=== PATIENT | female | born 1975 | race Caucasian/White ===

== ENCOUNTER → 2017-11-07 | Outpatient (CLI) | payer OTHER | LOC: BMCIMAGING 09:02 | PROVIDERS: ATTEND Family Medicine | DX: S52.201A Unspecified fracture of shaft of right ulna, initial encounter for closed fracture (principal) ==

== ENCOUNTER → 2017-11-15 | Outpatient (CLI) | payer OTHER | LOC: BMCIMAGING 14:08 | PROVIDERS: ATTEND Orthopaedic Surgery Hand Surgery | DX: S52.601D Unspecified fracture of lower end of right ulna, subsequent encounter for closed fracture with routine healing (principal) ==

== ENCOUNTER → 2017-11-28 | Outpatient (CLI) | payer OTHER | LOC: BMCIMAGING 16:43 | PROVIDERS: ATTEND Orthopaedic Surgery Hand Surgery | DX: S52.251 Displaced comminuted fracture of shaft of ulna, right arm (principal) ==

== ENCOUNTER → 2017-12-12 | Outpatient (CLI) | payer OTHER | LOC: BMCIMAGING 16:29 | PROVIDERS: ATTEND Orthopaedic Surgery Hand Surgery | DX: S52.234D Nondisplaced oblique fracture of shaft of right ulna, subsequent encounter for closed fracture with routine healing (principal) ==

== ENCOUNTER → 2018-01-07 | Outpatient (CLI) | payer OTHER | LOC: BMCIMAGING 12:45 → EDSTATUS 12:46 | PROVIDERS: ATTEND Orthopaedic Surgery Hand Surgery | DX: S59.001D Unspecified physeal fracture of lower end of ulna, right arm, subsequent encounter for fracture with routine healing (principal) ==